=== PATIENT | male | born 1975 | race Two or more races ===

== ENCOUNTER 2019-06-13 21:00 | Emergency (ER) | payer MEDICAID, OTHER ==
[~2019-06-13] VITALS: Ht 165.1 cm; Wt 77.1 kg
[2019-06-13 22:02] LABS: Urine WBC None Seen /hpf (0 - 3)
[2019-06-13 22:36] LABS: Urine Bacteria NONE SEEN /hpf (None Seen); Urine Blood TRACE /uL (Negative)
[2019-06-14 04:30] VITALS: BP 107/61
== END 2019-06-14 05:34 | disposition home or self-care (01) ==
LOC: ER 21:05
DX: K40.90 Unilateral inguinal hernia, without obstruction or gangrene, not specified as recurrent (principal)
CPT/HCPCS: 74176; 81001